=== PATIENT | female | born 1970 | race Caucasian/White ===

== ENCOUNTER 2016-08-14 20:28 | Emergency (ER) | payer OTHER ==
[~2016-08-14] VITALS: Ht 172.7 cm; Wt 71.7 kg
[~2016-08-14 20:28] MED LIST: BIOTIN5 M1 PO; CYCLOBENZAPRINE10 M1 PO; GINSENG250 MG PO; LORAZEPAM0.5 M1 PO; MAGNESIUM400 M1 PO; METHOTREXATE2.5 M2 PO; VITAMIN B-121000 MC3 PO; VITAMIN D31000 UNI1 PO; VITAMIN E100 UNI3 PO
--- NOTE | 2016-08-14 21:35 | ED INFLUENZA/URI COMPLAINT ---
History of Present Illness General Chief Complaint: Fever Stated Complaint: FEVER AND CHILLS X 3 DAYS Source: patient Exam Limitations: no limitations Vital Signs & Intake/Output Vital Signs & Intake/Output Vital Signs Date Time Temp Pulse Resp B/P Pulse O2 O2 Flow FiO2 Ox Delivery Rate 08/14 2247 100.9 74 16 121/80 97 Room Air 08/14 2031 99.3 529 76 8389/89 97 Room Air Allergies Coded Allergies: No Known Allergies (03/26/16) Reconcile Medications Benzonatate 200 MG CAPSULE 1 CAP PO TID PRN cough Biotin (Unknown Strength) CAPSULE (Unknown Dose) PO DAILY SUPPLEMENT ( Reported) Cholecalciferol (Vitamin D3) (Vitamin D3) (Unknown Strength) CAPSULE (Unknown Dose) PO DAILY SUPPLEMENT (Reported) Cyanocobalamin (Vitamin B-12) (Unknown Strength) TABLET (Unknown Dose) PO DAILY SUPPLEMENT (Reported) Ginseng (Unknown Strength) CAPSULE (Unknown Dose) PO DAILY SUPPLEMENT ( Reported) Lorazepam 0.5 MG TABLET 1 TAB PO PRN ANXIETY (Reported) Magnesium Oxide (Magnesium) (Unknown Strength) CAPSULE (Unknown Dose) PO DAILY SUPPLEMENT (Reported) Meloxicam 15 MG TABLET 1 TAB PO DAILY PAIN/INFLAMMATION (Reported) Methotrexate 2.5 MG TABLET 4 TAB PO QSAT RA (Reported) Vitamin E (Unknown Strength) CAPSULE (Unknown Dose) PO DAILY SUPPLEMENT ( Reported) Triage Note: PT TO ED C/O FLU LIKE SYMPTOMS FOR 3 DAYS: FEVER, BODYACHES, HEADACHE, COUGH, FATIGUE Triage Nurses Notes Reviewed? yes HPI: Patient is a 46 year old female presents complaining of fevers and body aches. Symptoms onset on Sunday. Fevers up to 104. Taking Dayquil with improvement of fevers and body aches, then symptoms return. Last dose of Dayquil was 1 hour ago. Patient takes Methotrexate for RA. Associated headaches when the fevers increase. Positive cough and dyspnea today. Symptoms are currently mild to moderate, have been severe at times. Denies chest pain, abdominal pain, nausea, vomiting. Past History Travel History Traveled to [place] past 21 day No Medical History Any Pertinent Medical History? see below for history Musculoskeletal: rheumatoid arthritis Psychiatric: anxiety Surgical History Surgical History: non-contributory Psychosocial History What is your primary language Prydeinig Tobacco Use: Current Not Daily ETOH Use: occasional use Illicit Drug Use: denies illicit drug use Family History Hx Contributory? No Review of Systems Review of Systems Constitutional: Reports: chills, fever, malaise. EENTM: Reports: no symptoms. Respiratory: Reports: cough, short of breath. Cardiovascular: Denies: chest pain. GI: Reports: diarrhea. Denies: abdominal pain, nausea, vomiting. Genitourinary: Reports: no symptoms. Musculoskeletal: Reports: muscle pain. Skin: Reports: no symptoms. Neurological/Psychological: Reports: headache. Hematologic/Endocrine: Reports: no symptoms. Immunologic/Allergic: Reports: no symptoms. Physical Exam Physical Exam General Appearance: well developed/nourished, alert, awake Head: atraumatic, normal appearance Eyes: Bilateral: normal appearance, PERRL, EOMI. Ears, Nose, Throat: normal ENT inspection, moist mucous membrane, hearing grossly normal, Tympanic normal, pharynx normal Neck: normal inspection, supple, full range of motion Respiratory: normal breath sounds, chest non-tender, no respiratory distress, lungs clear Cardiovascular: regular rate/rhythm Gastrointestinal: soft, non-tender Back: normal inspection, normal range of motion Extremities: normal inspection, normal capillary refill, normal range of motion, no edema Neurologic/Psych: no motor/sensory deficits, awake, alert, oriented x 3, normal gait, normal mood/affect Skin: intact, normal color, warm/dry Lymphatic: no anterior cervical saba Core Measures Severe Sepsis Present: No Septic Shock Present: No Progress Differential Diagnosis: influenza, meningitis, neutropenia, otitis, pneumonia, bronchitis Plan of Care: Orders Procedure Date/time Status BLOOD CULTURE 08/14 2154 Active COMPREHENSIVE METABOLIC PANEL 08/14 2154 Complete CBC WITHOUT DIFFERENTIAL 08/14 2154 Complete RAPID VIRAL INFLUENZA A 08/14 2034 Complete Laboratory Tests 08/14/162207: Anion Gap 13, Estimated GFR > 60, BUN/Creatinine Ratio 23.8, Glucose 100 H, Calcium 9.0, Total Bilirubin 0.4, AST 51 H, ALT 75 H, Alkaline Phosphatase 67, Total Protein 7.6, Albumin 4.0, Globulin 3.6, Albumin/Globulin Ratio 1.1, CBC w Diff NO MAN DIFF REQ, RBC 3.69 L, MCV 94.7, MCH 31.7 H, RDW 14.1, MPV 8.5, Gran % 75.8 H, Lymphocytes % 14.6 L, Monocytes % 8.9, Eosinophils % 0.5, Basophils % 0.2, Absolute Granulocytes 7.1 H, Absolute Lymphocytes 1.4, Absolute Monocytes 0.8 H, Absolute Eosinophils 0.1, Absolute Basophils 0, PUBS MCHC 33.5 Microbiology 08/14 2233 BLOOD: Blood Culture - RECD 08/14 2207 BLOOD: Blood Culture - RECD 08/14 2031 NASOPHARYN: Influenza Virus A & B Rapid Smear - COMP 2304 08/14/16: Results of labs and x-ray discussed with patient. Discussed mildly elevated LFT's. Patient nontoxic appearing, no respiratory distress, tolerating oral intake. Despite negative influenza swab, suspect influenza. Patient outside of 48 hour window for Tamiflu initiation. Appears stable for discharge with symptomatic treatment. (MANUEL TORRES,EFRAIN) Diagnostic Imaging: Viewed by Me: Radiology Read. Discussed w/RAD: Radiology Read. CXR Impression: PATIENT: AB BENITEZ PRESENT AGE: 46 PATIENT ACCOUNT NO: [id number] : 69 LOCATION: [facility] ORDERING PHYSICIAN: EFRAIN TORRES SERVICE DATE: 08/14/16 EXAM TYPE: RAD - XRY-CHEST XRAY, PA AND LATERAL EXAMINATION: XR CHEST CLINICAL INFORMATION: Cough and fevers. COMPARISON: None. TECHNIQUE: PA and lateral views of the chest were obtained. FINDINGS: The lungs are well-expanded and clear without focal airspace consolidation. No pleural effusions or pneumothoraces are identified. Cardiomediastinal contours are within normal limits. Soft tissues are unremarkable. No acute osseous abnormality is identified. IMPRESSION: No acute cardiopulmonary abnormality. DICTATED BY: RANI MCALLISTER MD DATE/TIME DICTATED: 08/14/162243 BOX CAR BRACER:SHANICE DATE/TIME TRANSCRIBED:08/14/162243 CONFIDENTIAL, DO NOT COPY WITHOUT APPROPRIATE AUTHORIZATION. <Electronically signed in Other Vendor System> SIGNED BY: RANI MCALLISTER MD 08/14/162247 Initial ED EKG: none Departure Departure Time of Disposition: 2302 Disposition: HOME OR SELF CARE Condition: Stable Clinical Impression Primary Impression: Influenza-like illness Referrals: KAREEM WHEELER DO (PCP/Family) Additional Instructions: Drink plenty of fluids and rest. Follow up with your primary doctor if no improvement within 3-4 days. Return to the ER if unable to stay hydrated or worsening of symptoms. Departure Forms: Customer Survey General Discharge Information Prescriptions: Current Visit Scripts Benzonatate 1 CAP PO TID PRN cough #30 CAP
[2016-08-14] MEDS ORDERED: MELOXICAM15 M1 PO (22:02)
[2016-08-14 22:19] LABS: ABSOLUTE BASOPHIL COUNT 0 /CUMM (0.0-0.2); ABSOLUTE EOSINOPHIL COUNT 0.1 /CUMM (0.0-0.7); ABSOLUTE GRANULOCYTE CT 7.1 /CUMM (1.4-6.5); ABSOLUTE LYMPH COUNT 1.4 /CUMM (1.2-3.4); ABSOLUTE MONOCYTE COUNT 0.8 /CUMM (0.10-0.60); BASOPHIL % 0.2 % (0.0-2.0); EOSINOPHIL % 0.5 % (0-5); GRANULOCYTE % 75.8 % (42.2-75.2); HEMATOCRIT 34.9 % (37-47); MEAN CORPUSCULAR HGB 31.7 PG (27.0-31.0); MEAN CORPUSCULAR HGB CONC 33.5 G/DL (33.0-37.0); MEAN CORPUSCULAR VOLUME 94.7 FL (81.0-99.0); MEAN PLATELET VOLUME 8.5 FL (7.4-10.4); PLATELET COUNT 194 /CUMM (130-400); RBC DISTRIBUTION WIDTH 14.1 % (11.5-14.5); RED BLOOD CELL CT 3.69 /CUMM (4.20-5.40); WHITE BLOOD CELL COUNT 9.4 /CUMM (4.8-10.8)
[2016-08-14 22:47] VITALS: BP 121/80
--- NOTE | 2016-08-14 22:48 | RADIOLOGY REPORT ---
EXAMINATION: XR CHEST CLINICAL INFORMATION: Cough and fevers. COMPARISON: None. TECHNIQUE: PA and lateral views of the chest were obtained. FINDINGS: The lungs are well-expanded and clear without focal airspace consolidation. No pleural effusions or pneumothoraces are identified. Cardiomediastinal contours are within normal limits. Soft tissues are unremarkable. No acute osseous abnormality is identified. IMPRESSION: No acute cardiopulmonary abnormality.
[2016-08-14] MEDS ORDERED: BENZONATATE200 M1 PO (23:03)
== END 2016-08-14 23:11 ==
LOC: ERH 20:28
PROVIDERS: Physician Assistant
DX: R50.9 Fever, unspecified (principal)
CPT/HCPCS: 87040; 87804; 87804-59